=== PATIENT | female | born 1950 | race Caucasian/White ===

== ENCOUNTER 2021-04-13 15:42 | Emergency (ER) | payer MEDICARE ==
[~2021-04-13] VITALS: Ht 162.6 cm; Wt 90.7 kg
--- NOTE | 2021-04-13 16:03 | NUR ---
Dr Jacinto at the bedside for MSE.
[2021-04-13] MEDS ORDERED: EMPA25TA PO (16:06)
[2021-04-13] MEDS ORDERED: PRAV40TA3 PO (16:06)
[2021-04-13] MEDS ORDERED: GABA-532 PO (16:06)
[2021-04-13] MEDS ORDERED: LISI1TAB55 PO (16:06)
[2021-04-13] MEDS ORDERED: ESCI20TA PO (16:06)
[2021-04-13] MEDS ORDERED: METO100T7 PO (16:06)
[2021-04-13] MEDS ORDERED: DEXL60CA3 PO (16:06)
--- NOTE | 2021-04-13 16:27 | NUR ---
marketing technology specialist performed XR
[2021-04-13] MEDS ORDERED: MORPHINE SULFATE 2 MG/1 ML DISP.SYRIN IM ONE (16:45)
[2021-04-13] MEDS ORDERED: MORPHINE SULFATE 2 MG/1 ML DISP.SYRIN ONE (16:52)
[2021-04-13] MEDS ORDERED: OXYC5CAP18 PO (17:44)
[2021-04-13] MEDS ORDERED: NAPR-1192 PO (17:44)
--- NOTE | 2021-04-13 17:58 | NUR ---
Pt able to stand up and took few steps. Assissted pt to wheelchair and pt started being diapheratic, and had few seconds of disorientation, and loss of urine, Dr Jacinto by the wheelchair.
--- NOTE | 2021-04-13 18:03 | NUR ---
Assissted pt back to bed, awake A/O x4 at this time. Pt states her RLE not painful anymore, and probably got dizzy b/c Morphine.
--- NOTE | 2021-04-13 18:22 | NUR ---
Pt out of Er for CT scan.
[2021-04-13 18:23] LABS: HEMATOCRIT 39.7 % (31.2-41.9); MEAN CORPUSCULAR HEMOGLOBIN 29.5 uug (24.7-32.8); MEAN CORPUSCULAR VOLUME 87.8 fL (75.5-95.3); PLATELET COUNT (AUTO) 255 K/uL (179-408)
[2021-04-13 18:27] LABS: CARBON DIOXIDE 27 mmol/L (21-32); CHLORIDE 98 mmol/L (98-107); CREATININE 0.9 mg/dL (0.6-1.3); GLUCOSE 176 mg/dL (74-106); POTASSIUM 3.7 mmol/L (3.5-5.1); UREA NITROGEN, BLOOD 19 mg/dL (7-18)
[2021-04-13 18:36] LABS: ALANINE AMINOTRANSFERASE 19 U/L (14-59); ALKALINE PHOSPHATASE 57 U/L (50-136); ASPARTATE AMINOTRANSFERASE 16 U/L (15-37); BILIRUBIN,DIRECT 0.1 mg/dL (0.0-0.2); BILIRUBIN,TOTAL 0.3 mg/dL (0.2-1.0); LIPASE 84 U/L (73-393); TOTAL PROTEIN, SERUM 7.5 g/dL (6.4-8.2)
--- NOTE | 2021-04-13 18:45 | NUR ---
Pt back from Ct scan, resting in bed, pt's sitter in the room w/ Pt.
--- NOTE | 2021-04-13 19:00 | NUR ---
RECEIVED REPORT FROM BERNIE SHORT. PT NOTED TO BE IN BED, A/O X4 NO SOB OR LABORED BREATHING. DENIES ANY PAIN/DISCOMFORT AT THIS TIME. SISTER A BEDSIDE.
--- NOTE | 2021-04-13 19:48 | NUR ---
CALLED [facility] FOR PANEL CALL, DR. TESSIE RIVER.
[2021-04-13] MEDS ORDERED: HYDROCODONE/APAP 5-325MG TABLET PO PRN (20:30)
[2021-04-13] MEDS ORDERED: REMEDY ESSENTIAL ZINC PASTE 113 GM TP PRN (20:30)
[2021-04-13] MEDS ORDERED: MAGNESIUM HYDROXIDE 30 ML LIQUID UDC PO PRN (20:30)
[2021-04-13] MEDS ORDERED: NAPROXEN 250 MG TABLET PO PRN (20:30)
[2021-04-13] MEDS ORDERED: ACETAMINOPHEN 325 MG TABLET PO PRN (20:30)
[2021-04-13] MEDS ORDERED: OXYCODONE HCL 5 MG TABLET PO PRN (20:30)
[2021-04-13] MEDS ORDERED: ONDANSETRON 4 MG/2 ML VIAL IV PRN (20:30)
[2021-04-13] MEDS ORDERED: Medication Not On Formulary EA (Oxycodone Hcl 1 CAP) PO PRN (20:30)
[2021-04-13] MEDS ORDERED: ATORVASTATIN 10 MG TABLET PO SCH (21:00)
--- NOTE | 2021-04-13 22:10 | NUR ---
PT RESTING COMFORTABLY IN BED, AWAKE AND WATCHING TV. DENIES ANY N/V. NO SOB OR LABORED BREATHING.
[2021-04-13] MEDS ORDERED: IBUPROFEN 800 MG TABLET ONE (22:45)
[2021-04-13] MEDS ORDERED: IBUPROFEN 800 MG TABLET PO ONE (22:45)
--- NOTE | 2021-04-13 23:57 | NUR ---
ASSISTED PT TO AMBULATE TO RESTROOM, STEADY GAIT.
--- NOTE | 2021-04-13 23:59 | NUR ---
Patient discharged to home in stable condition. Written and verbal after care instructions given. Patient verbalizes understanding of instructions. Stressed follow up or return to ER for worsening. Steady gait. Denies aqny GRAY/dizzyness. No SOB or labored breathing. Afebrile. No changes in LOC. Picked up by son.
[2021-04-14 00:14] VITALS: BP 122/61
[2021-04-14] MEDS ORDERED: IBUPROFEN 800 MG TABLET PO ONE (00:15)
[2021-04-14] MEDS ORDERED: PATIENT MAY USE OWN MED- MD OK PO SCH ×2 (07:00→09:00)
[2021-04-14] MEDS ORDERED: LISINOPRIL 20 MG TABLET PO SCH (09:00)
[2021-04-14] MEDS ORDERED: HYDROCHLOROTHIAZIDE 12.5 MG CAPSULE PO SCH (09:00)
[2021-04-14] MEDS ORDERED: Medication Not On Formulary EA (Dexlansoprazole (Dexilant) 1 CAP) PO SCH (09:00)
[2021-04-14] MEDS ORDERED: Medication Not On Formulary EA (Metoprolol Succinate (Toprol Xl) 1 TAB) PO SCH (09:00)
[2021-04-14] MEDS ORDERED: ESCITALOPRAM OXALATE 10 MG TABLET PO SCH (09:00)
[2021-04-14] MEDS ORDERED: METOPROLOL SUCCINATE XL 50 MG TAB.SR.24H PO SCH (09:00)
[2021-04-14] MEDS ORDERED: Medication Not On Formulary EA (Escitalopram Oxalate (Lexapro) 1 TAB) PO SCH (09:00)
[2021-04-14] MEDS ORDERED: Medication Not On Formulary EA (Empagliflozin (Jardiance) 25 MG) PO SCH (09:00)
[2021-04-14] MEDS ORDERED: Medication Not On Formulary EA (Lisinopril/HCTZ (Lisinopril-Hctz 20-12.5 Mg Tab) 1 TAB) PO SCH (09:00)
[2021-04-14] MEDS ORDERED: GABAPENTIN 100 MG CAPSULE PO SCH (09:00)
[2021-04-14] MEDS ORDERED: Medication Not On Formulary EA (Pravastatin Sodium 1 TAB) PO SCH (18:00)
== END 2021-04-14 | disposition home or self-care (01) ==
LOC: ER 15:46
DX: S87.81XA Crushing injury of right lower leg, initial encounter (principal); V43.42XA Person boarding or alighting a car injured in collision with other type car, initial encounter; Y92.008 Other place in unspecified non-institutional (private) residence as the place of occurrence of the external cause; D72.829 Elevated white blood cell count, unspecified; Z20.822 Contact with and (suspected) exposure to COVID-19; R79.89 Other specified abnormal findings of blood chemistry; I10 Essential (primary) hypertension; E78.5 Hyperlipidemia, unspecified; E11.42 Type 2 diabetes mellitus with diabetic polyneuropathy; K21.9 Gastro-esophageal reflux disease without esophagitis; Z79.84 Long term (current) use of oral hypoglycemic drugs; Z79.899 Other long term (current) drug therapy; F32.A Depression, unspecified
CPT/HCPCS: 36415; 70450; 73502; 73564; 73590; 80048; 80076; 82550 ×2; 83690; 84484; 85025; 87426; 93005; 96372; 99291; J2270; A4663